=== PATIENT | female | born 1990 | race African-American/Black ===

== ENCOUNTER 2018-06-03 06:07 | Day surgery (SDC) | payer BC, OTHER ==
[2018-05-31 17:05] VITALS: BMI 35.7
[2018-06-03 06:47] LABS: BASO % 0.6 % (0-2.0); HEMATOCRIT 37.1 % (32.4-45.2); HEMOGLOBIN 12.7 GM/dL (10.7-15.3); LYMPH % 41.4 % (8-40); MCH 29.7 pg (25.7-33.7); MCHC 34.2 g/dl (32.0-36.0); MEAN CELL VOLUME 86.9 fl (80-96); MEAN PLT VOLUME 9.1 fl (7.5-11.1); PLATELET COUNT 227 K/MM3 (134-434); RBC 4.28 M/mm3 (3.60-5.2); RDW 14.6 % (11.6-15.6); WHITE BLOOD COUNT 3.2 K/mm3 (4.0-10.0)
[2018-06-03] MEDS ORDERED: LIDOCAINE HCL/PF 2% SDV 5ML VIAL ONE (07:35)
[2018-06-03] MEDS ORDERED: MIDAZOLAM HCL 2 MG/2 ML SINGLE DOSE VIAL ONE (07:36)
[2018-06-03] MEDS ORDERED: PROPOFOL 20 ML ONE ×3 (07:36→08:47)
[2018-06-03] MEDS ORDERED: oxyCODONE HCL 5 MG TABLET PO PRN (07:48)
--- NOTE | 2018-06-03 07:52 | HP ---
Admitting History and Physical - Admission History of Present Illness: 28 yo G0 with hx/o endometrial polyp s/p D&C polypectomy 4 years ago with new onset irregular bleeding s/p ultrasound that was suspicious for polyp She reports no other complaints History Source: Patient Limitations to Obtaining History: No Limitations - Past Medical History Cardiovascular: No: HTN Pulmonary: No: Asthma Gastrointestinal: No: GERD ...LMP: 05/28/18 ...LMP Comment: heavy ...: No Heme/Onc: No: Anemia - Past Surgical History Additional Past Surgical History: D&C - Smoking History Smoking history: Never smoked Have you smoked in the past 12 months: No - Alcohol/Substance Use Hx Alcohol Use: Yes (socially) - Social History Usual Living Arrangement: Yes: With Spouse History of Recent Travel: No Home Medications - Allergies Allergies/Adverse Reactions: Allergies Allergy/AdvReac Type Severity Reaction Status Date / Time No Known Allergies Allergy Verified 05/31/18 17:05 - Home Medications Home Medications: Ambulatory Orders Ferrous Sulfate 325 mg PO DAILY 05/31/18 Family Disease History - Family Disease History Family History: Denies Review of Systems - Review of Systems Constitutional: reports: No Symptoms Cardiovascular: reports: No Symptoms Respiratory: reports: No Symptoms Gastrointestinal: reports: No Symptoms Genitourinary: reports: No Symptoms Musculoskeletal: reports: No Symptoms Neurological: reports: No Symptoms Endocrine: reports: No Symptoms Psychiatric: reports: No Symptoms Physical Examination Vital Signs: Vital Signs Temperature 98.3 F 06/03/18 06:49 Pulse Rate 61 06/03/18 06:49 Respiratory Rate 20 06/03/18 06:49 Blood Pressure 114/70 06/03/18 06:49 O2 Sat by Pulse Oximetry (%) 99 06/03/18 06:38 Constitutional: Yes: Well Nourished, No Distress, Calm Cardiovascular: Yes: Regular Rate and Rhythm Respiratory: Yes: Regular, CTA Bilaterally Gastrointestinal: Yes: Normal Bowel Sounds, Soft Edema: No Integumentary: Yes: WNL Wound/Incision: Yes: Other Neurological: Yes: Alert ...Motor Strength: WNL Psychiatric: Yes: Alert, Oriented Labs: CBC, BMP 06/03/18 05:30 Assessment/Plan 28 yo with irregular bleeding and endometrial polyp for hysteroscopy,. D&C, polypectomy 1. Consents reviewed and signed 2. Preop labs reviewed 3. SCDs for DVT prophylaxis 4. Will proceed to OR
[2018-06-03] MEDS ORDERED: ceFAZolin SODIUM 1 GM VIAL IVPB ONE (08:15)
[2018-06-03] MEDS ORDERED: ceFAZolin SODIUM 1 GM VIAL ONE ×2 (08:19)
[2018-06-03] MEDS ORDERED: KETOROLAC TROMETHAMINE 30 MG/1 ML VIAL ONE (08:30)
[2018-06-03] MEDS ORDERED: IBUPROFEN 400 MG TABLET (FP) PO PRN (08:49)
[2018-06-03] MEDS ORDERED: ACETAMINOPHEN 325 MG TABLET (FP) PO PRN (08:49)
--- NOTE | 2018-06-03 09:03 | OP ---
Operative Note - Note: Operative Date: 06/03/18 Pre-Operative Diagnosis: endometrial polyp, irregular bleeding Operation: hysteroscopic resection of submucosal myoma, polypectomy and D&C Findings: submucosal fibroid, polyp Post-Operative Diagnosis: Same as Pre-op Surgeon: Tash Stephen Anesthesiologist/CORRECTIONAL THERAPY TEACHER: Toshia Justin Anesthesia: General Specimens Removed: endometrial polyp, submucosal fibroid, EMC Estimated Blood Loss (mls): 20 Drains, Volume Out (mls): 150 (fluid deficit) Fluid Volume Replaced (mls): 600 Operative Report Dictated: Yes
[2018-06-03] MEDS ORDERED: ONDANSETRON 4 MG/2 ML VIAL IVPUSH PRN (09:04)
[2018-06-03] MEDS ORDERED: ACETAMINOPHEN 1000 MG/100 ML VIAL (NON FORMULARY) IVPB PRN (09:05)
[2018-06-03] MEDS ORDERED: LACTATED RINGERS SOLUTION 1,000 ML IV SCH (09:15)
[2018-06-03 10:38] VITALS: TEMP 97.6
[2018-06-03 12:05] VITALS: BP 100/50; PULSE 70
--- NOTE | 2018-06-03 20:57 | OP ---
DATE OF OPERATION: 06/03/2018 ATTENDING PHYSICIAN RESPONSIBLE FOR SIGNING REPORT: Courtney Stephen MD PREOPERATIVE DIAGNOSES: Irregular bleeding, endometrial polyp. POSTOPERATIVE DIAGNOSES: Submucosal fibroid, endometrial polyp, irregular bleeding. SURGEON: Courtney Stephen MD ANESTHESIOLOGIST: Toshia Justin MD SPECIMENS REMOVED: Submucosal fibroid, endometrial polyp, and endometrial curetting. SURGERY: Hysteroscopic resection of submucosal myoma, polypectomy, and dilatation and curettage. ESTIMATED BLOOD LOSS: 20. FLUID DEFICIT: 150. FLUIDS GIVEN: 600. INDICATION: Patient is a 28-year-old with a history of endometrial polyps status post resection in the past, presenting with irregular bleeding. Ultrasound findings were suspicious for endometrial polyp. She was counseled regarding medical and surgical or observation. She opted for surgical intervention. She was counseled regarding risks, benefits, alternatives, and complications of the procedure including infection, bleeding, damage to surrounding organs and risk of uterine perforation. She expressed understanding, was brought to the operating room. DESCRIPTION OF PROCEDURE: When anesthesia was found to be adequate, patient was prepped and draped in normal sterile fashion, placed in dorsal lithotomy position using Charles stirrups. A weighted speculum was placed in the patient's vagina. The anterior vagina was retracted using Hart retractor. Anterior lip of the cervix was grasped using an Allis clamp. The cervix was gently dilated to accommodate the Symphion hysteroscope. Hysteroscopy performed, showed endometrial polyp and submucosal myoma. A Symphion resection was performed with removal of endometrial tissue. All instruments were removed from the patient's vagina, and evaluation of the endometrial cavity revealed no additional pathology. Gentle sharp curettings were performed, and all specimens removed and sent to Pathology. The patient was awoken from anesthesia, brought to recovery room in stable condition. COURTNEY STEPHEN M.D. [id number] MTDD
--- NOTE | 2018-06-04 17:40 | PATH ---
Surgical Pathology Report Patient Name: NIURKA FUENTES [facility] Rec. #: [id number] /Age/Gender: 1990 (Age: 28) / F Account: [id number] Location: [facility] SURGICAL Taken: 06/03/2018 Received: 06/03/2018 Reported: 06/04/2018 Physicians: Tash Stephen Specimen(s) Received FIBROID AND POLYP, EMC Clinical History Polyp of corpus uteri Postoperative diagnosis: Endometrial polyp, submucosal fibroid Final Diagnosis POLYP AND FIBROID, EMC, DILATION AND CURETTAGE: FRAGMENTS OF ENDOMETRIAL POLYP, BUNDLES OF SMOOTH MUSCLE CONSISTENT WITH SUBMUCOSAL LEIOMYOMA, AND SCANT BENIGN ENDOCERVICAL TISSUE. Electronically Signed April Perera M.D. Gross Description Received in formalin labeled "polyp and fibroid, EMC," is a 3.5 x 3.5 x 0.3 cm aggregate of rock soft tissue fragments admixed with blood clot. The formalin is filtered and the specimen is entirely submitted in 3 cassettes. /06/03/2018 [facility]06/03/2018
== END 2018-06-03 12:05 | disposition home or self-care (01) ==
LOC: JASU-SURG 06:07
PROVIDERS: ATTEND Obstetrics & Gynecology
PROC: 0UDB7ZX Extraction of Endometrium, Via Natural or Artificial Opening, Diagnostic (ICD-10-PCS; 2018-06-03)
PROC: 0UJD8ZZ Inspection of Uterus and Cervix, Via Natural or Artificial Opening Endoscopic (ICD-10-PCS; 2018-06-03)
PROC: 0UB98ZZ Excision of Uterus, Via Natural or Artificial Opening Endoscopic (ICD-10-PCS; principal; 2018-06-03 07:30)
PROC: 0UB97ZX Excision of Uterus, Via Natural or Artificial Opening, Diagnostic (ICD-10-PCS; 2018-06-03 07:30)
DX: N93.9 Abnormal uterine and vaginal bleeding, unspecified (principal); D25.0 Submucous leiomyoma of uterus; N84.0 Polyp of corpus uteri
CPT/HCPCS: 36415; 84703; 85025; 86850; 86900; 86901; 88305-TC; 94760